=== PATIENT | female | born 1995 | race Caucasian/White ===

== ENCOUNTER 2017-01-29 13:15 | Emergency (ER) | payer OTHER ==
[2017-01-29 13:05] LABS: URINE SOURCE CLEAN CATCH
[2017-01-29 13:10] LABS: URINE APPEARANCE CLEAR; URINE BILIRUBIN NEG (NEG); URINE BLOOD NEG (NEG); URINE COLOR YELLOW; URINE GLUCOSE NEG (NORM); URINE KETONE NEG (NEG); URINE LEUKOCYTE ESTERASE 1+ (NEG); URINE NITRATE NEG (NEG); URINE PH 8.5 (5-8); URINE PROTEIN TRACE (NEG); URINE UROBILINOGEN 0.2 MG/DL (NORM)
[2017-01-29 13:15] LABS: MICRO INDICATED? YES
[~2017-01-29 13:15] MED LIST: NO MEDICATIONS
[2017-01-29 13:22] LABS: CULTURE INDICATED? YES; URINE BACTERIA 2+ (NEG); URINE MUCUS PRESENT; URINE SQUAMOUS EPITHELIAL CELL MANY /[HPF]; URINE WBC 25-50 /[HPF] (0-5)
[2017-01-30 21:53] LABS: CHLAMYDIA TRACH Not Detected (Not Detected); N GONOR Not Detected (Not Detected)
== END 2017-01-29 15:05 | disposition home or self-care (01) ==
LOC: SED 13:15
PROVIDERS: Student in an Organized Health Care Education/Training Program
DX: R82.71 Bacteriuria (principal); Z90.49 Acquired absence of other specified parts of digestive tract
CPT/HCPCS: 81003; 84703; 87086; 87491; 87591; 87808; 87905; 99284

== ENCOUNTER 2017-03-15 15:26 | Emergency (ER) | payer OTHER ==
--- NOTE | ~2017-03-15 | CR63 ---
[facility]. [facility] A Service of [facility] & [facility] / [facility] RADIOLOGY TEXT RESULTS PATIENT: LOWELL HUNTER LOCATION: SED : [birth year] UNIT #: [id number] AGE: [address]: Debbie Godoy MD SEX: F ORDER DR: [id number] [address] [address] [id number] E MR#: [id number] Acc #: [id number] NAME: LOWELL HUNTER : 1995 SEX: F STUDY DATE/TIME: 03/15/2017 16:03 UNIT: SED ROOM: STUDY DESCRIPTION: CR Chest 2 View Attending Physician: Debbie Godoy M.D. Ordering Physician: Debbie Godoy M.D. MEDICAL IMAGING REPORT This report is preliminary unless electronic signature is present. EXAM Chest PA and lateral, 03/15/2017 HISTORY Cough and shortness of breath for 5 days. Smoking history. FINDINGS PA and lateral examination of the chest upright shows a good expansion of the parenchyma with a normal distribution of the pulmonary vascularity. There is no indication of congestion, effusion, infiltrate, tumor, or nodular density. The pleural reflections and diaphragmatic contours are normal. The cardiac silhouette and mediastinal anatomy is within normal limits. IMPRESSION Normal chest. Dictated by... Betito Terry M.D. THIS IS AN ELECTRONICALLY VERIFIED REPORT Betito Terry M.D. at 03/16/2017 2:09 PM DAX/ani TD: 03/15/2017 23:54 JOB #: [id number] MEDICAL IMAGING REPORT Page 1 of 1
[2017-03-15 15:56] LABS: URINE SOURCE CLEAN CATCH
[2017-03-15 15:59] LABS: URINE APPEARANCE SL CLOUDY; URINE BILIRUBIN NEG (NEG); URINE BLOOD TRACE-INTACT (NEG); URINE COLOR YELLOW; URINE GLUCOSE NEG (NORM); URINE KETONE NEG (NEG); URINE LEUKOCYTE ESTERASE 2+ (NEG); URINE NITRATE NEG (NEG); URINE PROTEIN TRACE (NEG); URINE SPECIFIC GRAVITY 1.015 (1.003-1.035)
[2017-03-15 16:01] LABS: MICRO INDICATED? YES; URINE PH 9.5 (5-8)
[2017-03-15 16:05] LABS: CULTURE INDICATED? YES; URINE BACTERIA 1+ (NEG); URINE RBC 0-2 /[HPF] (0-2); URINE SQUAMOUS EPITHELIAL CELL MANY /[HPF]; URINE WBC 25-50 /[HPF] (0-5)
== END 2017-03-15 16:39 | disposition home or self-care (01) ==
LOC: SED 15:26
PROVIDERS: Student in an Organized Health Care Education/Training Program
DX: R05 Cough (principal); Z90.49 Acquired absence of other specified parts of digestive tract; F17.200 Nicotine dependence, unspecified, uncomplicated
CPT/HCPCS: 71020; 81003; 84703; 87086; 99283